=== PATIENT | female | born 1955 | race Caucasian/White ===

== ENCOUNTER 2019-05-14 10:26 | Emergency (ER) | payer BC, SELFPAY ==
--- NOTE | ~2019-05-14 | XR_ITS ---
EXAMINATION: XR chest 2V EXAM DATE: 05/14/2019 11:30 INDICATION: Cough, low-grade temperature. TECHNIQUE: Frontal and lateral projections of the chest obtained and reviewed. Comparison is made to prior examination from 11/24/2018. FINDINGS: The lungs are clear. There are no pleural effusions. The cardiomediastinal silhouette is within normal limits. There is no pneumothorax suspected. The bones and soft tissues are unremarkab le. IMPRESSION: No acute cardiopulmonary findings. Reviewed, dictated and finalized at location B. [employer] DRIVER
[2019-05-14 10:45] VITALS: BP 113/48; PULSE 89; RESP 18; TEMP 37; O2SAT 100
--- NOTE | 2019-05-14 10:48 | ED.URI ---
HPI - URI/Sore Throat General Chief Complaint: Upper Respiratory Infection Stated Complaint: chest congestion/cough/wheezing/fever Time Seen by Provider: 05/14/19 10:48 Source: patient and RN notes reviewed History of Present Illness HPI Narrative: Patient is a 64-year-old female that presents the urgent care with complaints of chest congestion, cough, fever, wheezing. Patient states that she had back surgery on May 07 and was told to go to the emergency room due to her shortness of breath and wheezing. Patient states that she had a flu swab yesterday and it was negative. Patient states that she has become increasingly short of breath. Patient states she has been on cefdinir for preventative from her back doctor. No other acute complaints. No acute distress noted. Patient read the plan of care. Related Data Home Medications Medication Instructions Recorded Confirmed acetaminophen-codeine 1 tablet PO DAILY 05/14/19 05/14/19 alprazolam [Xanax] 0.5 mg PO DAILY 05/14/19 05/14/19 carisoprodol [Soma] 350 mg PO DAILY 05/14/19 05/14/19 cyclosporine [Restasis] 1 drp OPHTHALMIC (EYE) DAILY 05/14/19 05/14/19 hydrochlorothiazide 25 mg PO DAILY 05/14/19 05/14/19 sertraline [Zoloft] 50 mg PO DAILY 05/14/19 05/14/19 simvastatin 20 mg PO DAILY 05/14/19 05/14/19 Allergies Allergy/AdvReac Type Severity Reaction Status Date / Time erythromycin base Allergy Mild Verified 05/14/09 13:33 hydrocodone Allergy Mild TACHY Verified 05/14/09 13:33 tramadol Allergy Itching Verified 05/14/19 10:40 Review of Systems Review of Systems: Narrative: CONSTITUTIONAL: Reports a fever EYES: Denies visual changes, redness, or discharge. ENT: Denies rhinorrhea, congestion, sore throat, or otalgia. CARDIOVASCULAR: Denies chest pain, palpitations, or edema. RESPIRATORY: Reports of dyspnea and wheezing with cough GASTROINTESTINAL: Denies abdominal pain, nausea, vomiting, or diarrhea. GENITOURINARY: Denies dysuria or hematuria. SKIN: Denies rash or itching. MUSCULOSKELETAL: Denies back pain, joint pain, or myalgia. NEUROLOGIC: Denies headache, numbness, or weakness. All other systems reviewed are negative, except as documented in HPI. PMFSH Comments At the time of my signature, I reviewed and agree with the nursing past medical, surgical, social, and family history. There is no relevant family history pertinent to the patient complaint. Exam Narrative: Exam Narrative: GENERAL: This is a well-nourished, well-developed patient, in no apparent distress. HEAD: normocephalic, atraumatic. EYES: PERRL. Sclera clear/white. Vision is grossly intact. EARS: External ears normal, auditory canals clear and without drainage, moderate fluid noted behind right TM without otitis, left TMs normal without perforation. Hearing grossly intact. NOSE: External nose normal with no obvious nasal discharge, bilateral erythemic nares with clear to yellow rhinorrhea THROAT: Mucous membranes moist, posterior pharynx clear. Moderate postnasal drainage NECK: Neck supple CARDIOVASCULAR: Regular rate and rhythm without murmurs, gallops, or rubs. RESPIRATORY: Moderate expiratory wheezes throughout SKIN: warm, intact with no suspicious lesions or rash, good texture and turgor. NEURO: awake, alert, and oriented to person, place and time. There were no obvious focal neurologic abnormalities. EXTREMITIES: No clubbing, cyanosis, or edema. Course Vital Signs Vital signs: Vital Signs Temperature 98.6 F 05/14/19 10:45 Pulse Rate 89 05/14/19 10:45 Respiratory Rate 18 05/14/19 10:45 Blood Pressure 113/48 L 05/14/19 10:45 Pulse Oximetry 100 05/14/19 10:45 Temperature 98.6 F 05/14/19 10:45 Pulse Rate 89 05/14/19 10:45 Respiratory Rate 18 05/14/19 10:45 Blood Pressure 113/48 L 05/14/19 10:45 Pulse Oximetry 100 05/14/19 10:45 Reviewed MDM - URI/Sore Throat MDM Narrative Medical decision making narrative: Reviewed x-ray results with the patient. She is aware
== END 2019-05-14 12:05 | disposition left against medical advice (07) ==
PROVIDERS: Emergency Provider Nurse Practitioner Family; PCP Internal Medicine
DX: J40 Bronchitis, not specified as acute or chronic (principal); G47.30 Sleep apnea, unspecified; M35.00 Sjogren syndrome, unspecified
CPT/HCPCS: 71046; 99213; G0463

== ENCOUNTER 2020-12-22 14:48 | Outpatient (CLI) | payer BC, SELFPAY ==
--- NOTE | ~2020-12-22 | DEXA_ITS ---
Bone Density Report Name: Patience Fields Age: 65 Sex: Female Ethnicity: White Date of : 1955 Indication: postmenopausal; height loss; prior fracture; rheumatoid arthritis; Referring Provider: Belinda, Paul Ward Study: Bone densitometry was performed. Exam Date: December 22, 2020 Accession number: [id number] Bone Density: Region BMD T-score Z-score Classification Femoral Neck (Left) 0.692 -1.4 0.2 Osteopenia Total Hip (Left) 0.926 -0.1 1.2 Normal Total Hip Bilateral Avg 0.917 -0.2 1.1 Normal Femoral Neck (Right) 0.712 -1.2 0.4 Osteopenia Total Hip (Right) 0.906 -0.3 1.0 Normal World Health Organization criteria for BMD impression classify patients as: Normal (T-score at or above -1.0), Osteopenia (T-score between -1.0 and -2.5), or Osteoporosis (T-score at or below -2.5). 10-year Fracture Risk(1): Major Osteoporotic Fracture 18% Hip Fracture 2.1% Reported Risk Factors: [place] (), Neck BMD=0.692, BMI=32.8, previous fracture, rheumatoid arthritis (1) FRAX(R) Version 3.08. Fracture probability calculated for an untreated patient. Fracture probability may be lower if the patient has received treatment. Previous Exams: Region Exam Age BMD T-score BMD Change BMD Change Date g/cm2 vs Baseline vs Previous Total Hip(Left) 12/22/2020 65 0.926 -0.1 -0.002(-0.2%) -0.002(-0.2%) 11/06/2018 63 0.928 -0.1 Total Hip(Right) 12/22/2020 65 0.906 -0.3 -0.001(-0.1%) -0.001(-0.1%) 11/06/2018 63 0.906 -0.3 *Denotes significance at 95% confidence level, LSC for Total Hip = 0.027 g/cm2 Clinical Information Provided by Patient: Has had a low trauma fracture Has rheumatoid arthritis Has used the following medications: Vitamin D, Calcium Patient maximum height was 67 Menopause Age: 49 Onset of menses at age 12 Number of children 3 Impression: The patient has low bone mass, based on the Left Femoral Neck T-score. The patient has an estimated ten-year risk of hip fracture of 2.1% and an estimated ten-year risk of major fracture of 18%, based on the WHO FRAX algorithm. The patient has risk factors, including: previous fracture. No significant bone loss was observed. Discussion: BONE DENSITY IS LOW AT ONE OR MORE SKELETAL SITES. This patient's lowest T-score is low at one or more skeletal sites. It meets the World Health Organization's (WHO) criteria for ?low bone mass? (T-score between -1.0 and -2.5). The patient's 10-year risk of fracture as calculated by FRAX is less than the th
== END 2020-12-22 14:49 | disposition home or self-care (01) ==
LOC: ANHIMG 14:51
PROVIDERS: PCP Internal Medicine; Visit Provider Internal Medicine
DX: Z78.0 Asymptomatic menopausal state (principal); M85.851 Other specified disorders of bone density and structure, right thigh; M85.852 Other specified disorders of bone density and structure, left thigh
CPT/HCPCS: 77080

== ENCOUNTER 2021-02-14 07:30 | Outpatient (CLI) | payer BC, SELFPAY ==
--- NOTE | ~2021-02-14 | MM_ITS ---
EXAMINATION: MM screening brennan BI w alexandro HISTORY: Screening mammogram TECHNIQUE: Craniocaudal and mediolateral oblique 3-D tomosynthesis images were obtained and synthetic 2-D images were generated. CAD analysis was submitted and interpreted. COMPARISON: No prior mammogram is available for comparison at this institution. BREAST PARENCHYMAL COMPOSITION: The breasts are almost entirely fatty. FINDINGS: There is a biopsy marker in the left; history of multiple prior left benign breast biopsies . There is no evidence of suspicious mass, calcification, or architectural distortion to suggest brittney gnancy in either breast. There has been no suspicious interval change. IMPRESSION: 1. No mammographic evidence of malignancy. 2. Recommend routine screening mammography in one year. BI-RADS Category 1: Negative Reviewed, dictated and finalized at location A. K OFF BEARER
== END 2021-02-14 07:31 | disposition home or self-care (01) ==
PROVIDERS: PCP Internal Medicine; Visit Provider Obstetrics & Gynecology
DX: Z12.31 Encounter for screening mammogram for malignant neoplasm of breast (principal)
CPT/HCPCS: 77063; 77067

== ENCOUNTER 2021-09-19 10:57 | Emergency (ER) | payer MEDICARE, SELFPAY ==
[2021-09-19 11:08] VITALS: BP 122/59; PULSE 72; RESP 16; TEMP 37.3; O2SAT 97
--- NOTE | 2021-09-19 11:37 | ED.NAVMDI ---
HPI - Nausea/Vomiting/Diarrhea General Chief complaint: Nausea/Vomiting/Diarrhea Stated complaint: diarrhea Time Seen by Provider: 09/19/21 11:15 Source: patient Mode of arrival: ambulatory Limitations: no limitations History of Present Illness HPI Narrative: 66-year-old female presents with complaint of several episodes of diarrhea for the past 2 to 3 days. Recently got home from a cruise that included several international stops. States that she drank mostly bottled water but does remember drinking lemonade. Is concerned that she has traveler's diarrhea. Taking counter Imodium with some relief. Reports intermittent abdominal cramping. Denies fever or chills. All systems reviewed and negative as noted above. Related Data Home Medications Medication Instructions Recorded Confirmed acetaminophen 300 mg-codeine 60 mg 1 tablet PO DAILY 05/14/19 05/14/19 tablet alprazolam 0.5 mg tablet (Xanax) 0.5 mg PO DAILY 05/14/19 05/14/19 carisoprodol 350 mg tablet (Soma) 350 mg PO DAILY 05/14/19 05/14/19 cyclosporine 0.05 % eye drops in a 1 drp ophthalmic (eye) DAILY 05/14/19 05/14/19 dropperette (Restasis) hydrochlorothiazide 25 mg tablet 25 mg PO DAILY 05/14/19 05/14/19 sertraline 50 mg tablet (Zoloft) 50 mg PO DAILY 05/14/19 05/14/19 simvastatin 20 mg tablet 20 mg PO DAILY 05/14/19 05/14/19 Allergies Allergy/AdvReac Type Severity Reaction Status Date / Time erythromycin base Allergy Mild Verified 05/14/09 13:33 hydrocodone Allergy Mild TACHY Verified 05/14/09 13:33 tramadol Allergy Itching Verified 05/14/19 10:40 Review of Systems Review of Systems: CONSTITUTIONAL: Denies fever, chills, or sweats. Reports fatigue. EYES: Denies visual changes, redness, or discharge. ENT: Denies rhinorrhea, congestion, sore throat, or otalgia. CARDIOVASCULAR: Denies chest pain, palpitations, or edema. RESPIRATORY: Denies cough or dyspnea. GASTROINTESTINAL: Reports abdominal cramping and diarrhea. Denies nausea, vomiting. GENITOURINARY: Denies dysuria or hematuria. SKIN: Denies rash or itching. MUSCULOSKELETAL: Denies back pain, joint pain, or myalgia. NEUROLOGIC: Denies headache, numbness, or weakness. PSYCHIATRIC: Denies anxiety or depression. All other systems reviewed are negative, except as documented in HPI. PMFSH Comments At time of signature, agree with nursing past medical, surgical, social and family history. There is no relevant family history pertinent to the presenting complaint. Exam Narrative: GENERAL: This is a well-nourished, well-developed patient, in no apparent distress. HEAD: normocephalic, atraumatic. EYES: PERRL. Sclera clear/white. Vision is grossly intact. EARS: External ears normal NOSE: External nose normal NECK: Neck supple, non-tender without lymphadenopathy, masses or thyromegaly. CARDIOVASCULAR: Regular rate and rhythm without murmurs, gallops, or rubs. RESPIRATORY: Clear to auscultation. Breath sounds equal bilaterally. No wheezes, rales, or rhonchi. GASTROINTESTINAL: Abdomen soft, non-tender, nondistended. Bowel sounds are active. No hepato-splenomegaly, or palpable masses. No guarding. SKIN: warm, Dry, intact with no suspicious lesions or rash, good texture and turgor. NEURO: awake, alert, and oriented to person, place and time. There were no obvious focal neurologic abnormalities. EXTREMITIES: No joint tenderness, effusion, or edema noted. Course Course Level of Care: Express Care Visit Vital Signs Vital signs: Vital Signs Temperature 37.3 C 09/19/21 11:08 Pulse Rate 72 09/19/21 11:08 Respiratory Rate 16 09/19/21 11:08 Blood Pressure 122/59 L 09/19/21 11:08 Pulse Oximetry 97 09/19/21 11:08 Oxygen Delivery Room Air 09/19/21 11:08 Temperature 37.3 C 09/19/21 11:08 Pulse Rate 72 09/19/21 11:08 Respiratory Rate 16 09/19/21 11:08 Blood Pressure 122/59 L 09/19/21 11:08 Pulse Oximetry 97 09/19/21 11:08 Oxygen Delivery Room Air 09/19/21 11:08 Review
== END 2021-09-19 11:45 | disposition home or self-care (01) ==
PROVIDERS: Emergency Provider Nurse Practitioner Family; PCP Internal Medicine
DX: R19.7 Diarrhea, unspecified (principal)
CPT/HCPCS: 99213; G0463

== ENCOUNTER 2022-02-27 09:02 | Emergency (ER) | payer MEDICARE, SELFPAY ==
--- NOTE | 2022-02-27 09:05 | ED.URI ---
HPI - URI/Sore Throat General Chief Complaint: Upper Respiratory Infection Stated Complaint: FEVER/BODY ACHES/COUGH/SOB/CONGESTION Time Seen by Provider: 02/27/22 09:05 Source: patient and RN notes reviewed History of Present Illness HPI Narrative: Patient is a 66-year-old female who presents to urgent care with complaints of fever, body aches, cough, shortness of breath and congestion. Patient states that it started last night. States that she has been taking Tylenol, ibuprofen and using Mucinex. Patient had a negative COVID test at home. States that she was recently out of town in [place] and her [id number] had flu-like symptoms with fevers. Patient denies any nausea or vomiting. No other acute complaints. No acute distress noted. Patient aware of the plan of care. Some parts of this dictation were generated by voice recognition software and may contain typographical and/or grammatical inaccuracies. Related Data Home Medications Medication Instructions Recorded Confirmed acetaminophen 300 mg-codeine 60 mg 1 tablet PO DAILY 05/14/19 05/14/19 tablet alprazolam 0.5 mg tablet (Xanax) 0.5 mg PO DAILY 05/14/19 05/14/19 carisoprodol 350 mg tablet (Soma) 350 mg PO DAILY 05/14/19 05/14/19 cyclosporine 0.05 % eye drops in a 1 drp ophthalmic (eye) DAILY 05/14/19 05/14/19 dropperette (Restasis) hydrochlorothiazide 25 mg tablet 25 mg PO DAILY 05/14/19 05/14/19 sertraline 50 mg tablet (Zoloft) 50 mg PO DAILY 05/14/19 05/14/19 simvastatin 20 mg tablet 20 mg PO DAILY 05/14/19 05/14/19 Allergies Allergy/AdvReac Type Severity Reaction Status Date / Time erythromycin base Allergy Mild Itching Verified 02/27/22 09:57 hydrocodone Allergy Mild TACHY Verified 02/27/22 09:57 tramadol Allergy Itching Verified 02/27/22 09:57 Review of Systems Review of Systems: CONSTITUTIONAL: Reports fever EYES: Denies visual changes, redness, or discharge. ENT: Denies rhinorrhea, congestion, sore throat, or otalgia. CARDIOVASCULAR: Denies chest pain, palpitations, or edema. RESPIRATORY: Reports of congestion and cough with intermittent dyspnea GASTROINTESTINAL: Denies abdominal pain, nausea, vomiting, or diarrhea. GENITOURINARY: Denies dysuria or hematuria. SKIN: Denies rash or itching. MUSCULOSKELETAL: Denies back pain, joint pain. Reports body aches NEUROLOGIC: Denies headache, numbness, or weakness. All other systems reviewed are negative, except as documented in HPI. PMFSH Comments At the time of my signature, I reviewed and agree with the nursing past medical, surgical, social, and family history. There is no relevant family history pertinent to the patient complaint. Exam Narrative: GENERAL: This is a well-nourished, well-developed patient, in no apparent distress. HEAD: normocephalic, atraumatic. EYES: PERRL. Sclera clear/white. Vision is grossly intact. EARS: External ears normal, auditory canals clear and without drainage, TMs normal without perforation. Hearing grossly intact. NOSE: External nose normal with no obvious nasal discharge, nares without redness, clear rhinorrhea. THROAT: Mucous membranes moist, posterior pharynx clear. Moderate postnasal drainage NECK: Neck supple, non-tender without lymphadenopathy CARDIOVASCULAR: Regular rate and rhythm without murmurs, gallops, or rubs. RESPIRATORY: Clear to auscultation. Breath sounds equal bilaterally. No wheezes, rales, or rhonchi. SKIN: warm, intact with no suspicious lesions or rash, good texture and turgor. NEURO: awake, alert, and oriented to person, place and time. There were no obvious focal neurologic abnormalities. EXTREMITIES: No clubbing, cyanosis, or edema. Course Course Level of Care: Express Care Visit Vital Signs Vital signs: Vital Signs Temperature 98.7 F 02/27/22 09:11 Pulse Rate 78 02/27/22 09:11 Respiratory Rate 21 H 02/27/22 09:11 Blood Pressure 109/79 02/27/22 09:11 Pulse Oximetry 96 02/27/22 09:11 Oxygen Delivery Room Air
[2022-02-27 09:11] VITALS: BP 109/79; PULSE 78; RESP 21; TEMP 37.1; O2SAT 96
== END 2022-02-27 10:02 | disposition home or self-care (01) ==
PROVIDERS: Emergency Provider Nurse Practitioner Family; PCP Internal Medicine
DX: B34.9 Viral infection, unspecified (principal); M06.9 Rheumatoid arthritis, unspecified
CPT/HCPCS: 87804; 99213; G0463